=== PATIENT | female | born 1945 | race Caucasian/White ===

== ENCOUNTER 2016-11-01 17:32 | Emergency (ER) | payer OTHER, MEDICARE ==
[~2016-11-01] VITALS: Ht 162.6 cm; Wt 132.3 kg
[~2016-11-01 17:32] MED LIST: ULTRAM50 MG PO
[2016-11-01 17:42] VITALS: BP 173/85
[2016-11-01] MEDS ORDERED: KEFLEX250 MG PO (19:30)
== END 2016-11-01 20:07 | disposition home or self-care (01) ==
LOC: EXP 17:32 → EME 17:32 → EXP 20:07
PROC: 0HQGXZZ Repair Left Hand Skin, External Approach (ICD-10-PCS; principal; 2016-11-01)
PROC: 3E0234Z Introduction of Serum, Toxoid and Vaccine into Muscle, Percutaneous Approach (ICD-10-PCS; 2016-11-01)
DX: S61.412A Laceration without foreign body of left hand, initial encounter (principal); S64.491A Injury of digital nerve of left index finger, initial encounter; W26.0XXA Contact with knife, initial encounter; Y93.G1 Activity, food preparation and clean up; Z23 Encounter for immunization
CPT/HCPCS: 99281; 99285

== ENCOUNTER 2017-10-31 11:05 | Emergency (ER) | payer OTHER, MEDICARE ==
[~2017-10-31] VITALS: Ht 162.6 cm; Wt 133.9 kg
[~2017-10-31 11:05] MED LIST changes: +KEFLEX250 MG PO
[2017-10-31 12:22] LABS: APPEARANCE TURBID ((CLEAR)); BILIRUBIN NEGATIVE; BLOOD NEGATIVE; COLOR AMBER ((YELLOW)); GLUCOSE (STRIP) NEGATIVE; KETONES NEGATIVE; LEUKOCYTES SMALL; NITRITE NEGATIVE; PROTEIN (STRIP) 30; SPECIFIC GRAVITY 1.024 (1.000-1.030)
[2017-10-31 12:37] LABS: HEMATOCRIT 40.1 % (36.0-46.0); HEMOGLOBIN 13.2 G/DL (11.9-15.5); MCHC 32.9 G/DL (30.0-36.0); MCV 88.1 FL (83-99); PLATELET COUNT 263 K/uL (156-360); RBC DIS.WIDTH-CV 12.9 % (11.8-14.6); RBC DIS.WIDTH-SD 41.8 % (39-53); RED BLOOD COUNT 4.55 M/uL (3.80-5.20); WHITE BLOOD COUNT 7.7 K/uL (4.1-10.2)
[2017-10-31 12:40] LABS: EPITHELIAL CELLS 2+ /HPF; RED BLOOD CELLS RARE /HPF (0-5)
[2017-10-31 12:41] LABS: BACTERIA 2+ /HPF; CALCIUM OXALATE CRYSTALS 3+ /HPF; MUCUS TRACE /LPF; UCUL ADDED? YES
[2017-10-31 12:48] LABS: CHLORIDE 107 mEq/L (99-109); SODIUM 139 mEq/L (136-147)
[2017-10-31 12:49] LABS: GLUCOSE 109 mg/dL (70-99)
[2017-10-31 12:53] LABS: CREATININE 1.1 mg/dL (0.6-1.3); GFR ESTIMATE (CALCULATED) 52 mL/min/
[2017-10-31 12:54] LABS: UREA NITROGEN (BUN) 19 mg/dL (9-23)
[2017-10-31] MEDS ORDERED: SKELAXIN800 MG PO (16:03)
[2017-10-31] MEDS ORDERED: MEDROL DOSEPAK4 MG PO (16:03)
[2017-10-31 16:16] VITALS: BP 172/80
== END 2017-10-31 16:17 | disposition home or self-care (01) ==
LOC: EME 11:05
DX: M54.41 Lumbago with sciatica, right side (principal); I10 Essential (primary) hypertension; E11.9 Type 2 diabetes mellitus without complications; E07.9 Disorder of thyroid, unspecified; M19.91 Primary osteoarthritis, unspecified site
CPT/HCPCS: 74176; 80048; 81003; 85027; 87086; 99281; 99284